=== PATIENT | female | born 1965 | race Caucasian/White ===

== ENCOUNTER 2023-11-02 07:19 | Emergency (ER) | payer OTHER, SELFPAY ==
[2023-11-02] VITALS (7 sets, daily range): BP systolic 133–177; BP diastolic 84–102; PULSE 84; O2SAT 97; BMI 33.6
--- NOTE | 2023-11-02 07:59 | ED.GENMED ---
History of Present Illness
General
Chief Complaint: Dizziness
Source: patient
Exam Limitations: none
Time Seen by Provider: 11/02/23 07:57
Nursing documentation reviewed up to this point in time: agreed with
Travel History
Have you had any contact with someone who has COVID-19?: No
Do you have any symptoms of coronavirus? Fever > 100 degrees, chills, cough, shortness of breath, sore throat, loss of taste or smell, muscle aches, or headache?: No
History of Present Illness
History of Present Illness:
58-year-old female with history of HLD, presents stating she awakened at 5:30 AM went to the bathroom, went back and laid down and while she was turning in bed she put her head up to check the time and developed a sudden onset of room spinning
dizziness that lasted about 30 seconds and was accompanied by breaking out in a sweat. At 6:40 she felt nauseous and since then feels dizzy anytime she moves her head and she feels off balance when she walks.
She denies headache or change in vision. Any recent illness. She has flown to [place] and back several times in the past couple of months as she just bought a house in [place], her last flight back was 8 days ago.
Denies CP, SOB, abdominal pain. Denies UTI symptoms. Denies weakness, numbness or tingling in extremities. No difficulty ambulating but feels 'a little off balance.'
Had R lower root canal 4 weeks ago.
At this time has to lay with head elevated on pillow, looking straight ahead, any movement of head elicits room spinning dizziness.
Past History
Past History
ED Past Medical History: Hypercholesterolemia
ED Past Surgical History:
Social History
Tobacco: Non-smoker
Alcohol: Occasional
Personal:
Living: with family
Employment: Employed
Review of Systems
Review of Systems
Allergies reviewed?: Yes
All Other Systems: ROS reviewed and negative except as documented in HPI and ROS
Constitutional: Denies fever or fatigue
EENT: Denies sore throat
Respiratory: Denies trouble breathing
Cardiac: Denies chest pain, palpitations or syncope
ABD/GI: Reports nausea; Denies abdominal pain, vomiting or diarrhea
: Denies dysuria, frequency or difficulty voiding
Musculoskeletal: Reports no symptoms
Skin: Reports no symptoms
Neurological: Reports dizzy; Denies headache, weakness or numbness
Phy Exam
Physical Exam
Physical Exam:
GENERAL: No acute distress. A&Ox3.
CONSTITUTIONAL: Afebrile.
EYES: PERRL, conjunctivae normal
Neck: Supple
ENMT: moist mucus membranes, Pharynx nl, TMs normal
RESPIRATORY: Regular respirations, nonlabored, lungs clear.
CARDIOVASCULAR: Regular rate and rhythm, no murmurs, no rubs.
GI: Soft, nontender, normal BS
MUSCULOSKELETAL: Moves with ease. Well perfused.
SKIN: Warm, dry, pink
PSYCH: Normal mood and affect. Well kept, interactive and appropriate
NEUROLOGIC: Awake, alert and oriented. No focal neurological deficits, CN intact, motor 5/5, sens intact, F to N wnl, nl patellar reflexes, nl gait
Course
Orders/Labs/Results
Orders:
Orders
11/02/23 07:29
Electrocardiogram (*1) Urgent
Reason for Study: Vertigo / Dizzy
EKG- Treatment ONCE
11/02/23 07:55
Complete Blood Count/With Diff Urgent
Comprehensive Metabolic Panel Urgent
11/02/23 07:57
Physical Therapy Consult [Pt Eval And Treat] Urgent
Treatment: Vestibular evaluation
Activity Level: As Tolerated
11/02/23 07:58
0.9% Sodium Chloride 1000 ml [Nss] 1,000 ml IV BOLUS
11/02/23 09:31
Meclizine [Antivert] 25 mg PO NOW STA
Abnormal Lab Results
11/02/23
07:55
Glucose 135 H mg/dl
(70-99)
11/02/23 07:55
11/02/23 07:55
Vital Signs
Initial and Last Documented VS:
Initial Vital Signs
Temp Pulse Resp BP Pulse Ox
98.7 F 99 18 177/102 100
11/02/23 07:21 11/02/23 07:21 11/02/23 07:21 11/02/23 07:21 11/02/23 07:21
Last Documented Vital Signs
Temp Pulse Resp BP Pulse Ox
98.7 F 84 16 133/84 96
11/02/23 07:21 11/02/23 11:16 11/02/23 11:16 11/02/23 11:16 11/02/23 11:16
MDM/Problems Addressed
Differential Diagnosis Includes:
Benign vertigo, labyrinthitis, vestibular neuritis, TIA
MDM/Problems Addressed:
58-year-old female with history of HLD, presents stating she awakened at 5:30 AM went to the bathroom, went back and laid down and while she was turning in bed she put her head up to check the time and developed a sudden onset of room spinning
dizziness that lasted about 30 seconds and was accompanied by breaking out in a sweat. At 6:40 she felt nauseous and since then feels dizzy anytime she moves her head and she feels off balance when she walks.
She denies headache or change in vision. Any recent illness. She has flown to [place] and back several times in the past couple of months as she just bought a house in [place], her last flight back was 8 days ago.
Denies CP, SOB, abdominal pain. Denies UTI symptoms. Denies weakness, numbness or tingling in extremities. No difficulty ambulating but feels 'a little off balance.'
Had R lower root canal 4 weeks ago.
At this time has to lay with head elevated on pillow, looking straight ahead, any movement of head elicits room spinning dizziness. Will hold
No focal neurological deficits
9:36 AM
Physical therapy and an evaluation reveals positive BPPV with right nystagmus.
Prescription for meclizine sent to her pharmacy
Pt ambulated out with normal gait at discharge
*Critical Care Note
Total Time (30-74mins, 75-104mins- exclusive of procedures): Not Applicable
ED Attending Note
-
Portions of this chart may have been created with voice recognition software.� Occasional wrong word or��sound alike� substitutions may have occurred due to the inherent limitations of voice recognition software.
Discharge Plan
Departure
Patient Disposition: Home (Routine Discharge)
Date of Disposition: 11/02/23
Time of Disposition: 09:58
Patient with high blood pressure during this ER visit?: Yes
Condition: Good
Discharge Problem:
Benign paroxysmal positional vertigo of right ear
Instructions: Vertigo (a Type of Dizziness) (DC), BLOOD PRESSURE
Prescriptions:
New
meclizine 25 mg tablet
25 mg PO TID PRN (Reason: dizziness) Qty: 30 0RF
Referrals:
Vestibular, Clinic [Other] - Next open appointment
Sam Chacon, DO [Family Provider] - As needed
Stand Alone Forms: Return to Work
Activity Restrictions/Additional Instructions:
As we discussed, call the vestibular clinic and make next available appointment. I sent a prescription for meclizine (Antivert) to your pharmacy.
Your blood pressure was a little high, 144/91, nothing worrisome, just have it checked under calm circumstances sometime within the next few days.
Interventions
Interventions:
*Risk Screen - Suicide Last Done: 11/02/23 07:22
*General Assessment Last Done: 11/02/23 07:22
*Neglect/Abuse Screening Last Done: 11/02/23 07:22
*ED COVID-19 Vaccine History Last Done: 11/02/23 07:22
*Nursing Disposition Last Done: 11/02/23 11:16
ED- Neurological Assessment Last Done: 11/02/23 07:44
ED- Cardiac Assessment Last Done: 11/02/23 11:18
ED Swallowing Screen Last Done: 11/02/23 09:52
Discharge Date and Time
Discharge Date/Time: 11/02/23 11:19
Print Language: [id number]
[2023-11-02 08:06] LABS: % Basophils 0.5 % (0-2); % Eosinophils 1.9 % (0-6); % Immature Granulocytes 0.2 % (0-0.5); % Lymphocytes 30.2 % (20.5-51.1); % Monocytes 7.8 % (1.7-9.3); % Neutrophils 59.4 % (42.2-75.2); Absolute Eosinophils 0.1 10^3/uL (0-0.7); Absolute Lymphocytes 1.7 10^3/uL (1.2-3.4); Absolute Monocytes 0.4 10^3/uL (0.1-0.6); Absolute Neutrophils 3.4 10^3/uL (1.4-6.5); Hematocrit 38.7 % (37.0-47.0); Hemoglobin 13.2 g/dL (12.0-16.0); Mean Corp Hgb Conc. 34.1 g/dL (33.0-37.0); Mean Corpuscular Hgb 30.2 pg (27.0-31.0); Mean Corpuscular Volume 88.6 fL (81.0-99.0); Mean Platelet Volume 9.8 fL (7.4-10.4); Nucleated Red Blood Cells % 0 %; Platelet Count 196 10^3/uL (130-400); Red Blood Cell Count 4.37 10^6/uL (4.20-5.40); Red Cell Dist. Width 12.6 % (11.5-14.5); White Blood Cell Count 5.7 10^3/uL (4.8-10.8)
[2023-11-02] MEDS: NSS 1000 IV (08:23)
[2023-11-02 08:32] LABS: ALT (SGPT) 33 U/L (0-35); AST (SGOT) 23 U/L (14-36); Albumin 4.5 g/dl (3.5-5.0); Alkaline Phosphatase 63 U/L (38-126); Blood Urea Nitrogen 17 mg/dl (7-17); Calcium 9.5 mg/dl (8.4-10.2); Carbon Dioxide 27 mmol/L (22-30); Chloride 103 mmol/L (98-107); Estimated Creatinine Clearance 109 ml/min; Glucose 135 mg/dl (70-99); Potassium 3.9 mmol/L (3.5-5.1); Sodium 137 mmol/L (135-145); Total Bilirubin 0.6 mg/dl (0.2-1.3); Total Protein 7.2 g/dl (6.3-8.2); eGFR > 60.00
[2023-11-02] MEDS: ANTIVERT 25 MG PO (09:39)
== END 2023-11-02 11:19 | disposition home or self-care (01) ==
LOC: EMR 07:19
PROVIDERS: Registered Nurse; EMERGENCY PHYSICIAN Emergency Medicine; FAMILY PHYSICIAN Family Medicine
DX: H81.11 Benign paroxysmal vertigo, right ear (principal); R03.0 Elevated blood-pressure reading, without diagnosis of hypertension; E78.00 Pure hypercholesterolemia, unspecified
CPT/HCPCS: 99284; 80053; 85025; 93005

== ENCOUNTER → 2024-01-06 13:13 | Outpatient (REF) | payer OTHER, SELFPAY | LOC: PAVMRI 13:13 | PROVIDERS: ATTENDING PHYSICIAN Family Medicine | DX: R42 Dizziness and giddiness (principal) | CPT/HCPCS: 70553; A9575 ==

== ENCOUNTER → 2024-02-29 17:05 | Outpatient (REF) | payer OTHER, SELFPAY | LOC: RAD 17:05 | PROVIDERS: ATTENDING PHYSICIAN Otolaryngology; FAMILY PHYSICIAN Family Medicine | DX: E04.0 Nontoxic diffuse goiter (principal) | CPT/HCPCS: 76536 ==

== ENCOUNTER → 2024-10-09 09:41 | Outpatient (REF) | payer OTHER, SELFPAY | LOC: RAD 09:41 | PROVIDERS: ATTENDING PHYSICIAN Family Medicine | DX: R47.02 Dysphasia (principal); R00.2 Palpitations; M25.511 Pain in right shoulder | CPT/HCPCS: 71046; 73030; 74221 ==

== ENCOUNTER → 2024-10-27 13:18 | Outpatient (REF) | payer OTHER, SELFPAY | LOC: HWRAD 13:18 | PROVIDERS: ATTENDING PHYSICIAN Family Medicine | DX: Z78.0 Asymptomatic menopausal state (principal) | CPT/HCPCS: 77080 ==

== ENCOUNTER → 2024-10-30 08:09 | Outpatient (REF) | payer OTHER, SELFPAY | LOC: HWRAD 08:09 | PROVIDERS: ATTENDING PHYSICIAN Obstetrics & Gynecology; FAMILY PHYSICIAN Family Medicine | DX: R10.2 Pelvic and perineal pain (principal) | CPT/HCPCS: 76830; 76856 ==

== ENCOUNTER → 2024-11-28 10:22 | Outpatient (REF) | payer OTHER, SELFPAY | LOC: WDC 10:22 | PROVIDERS: ATTENDING PHYSICIAN Nurse Practitioner Adult Health; FAMILY PHYSICIAN Family Medicine | DX: R92.8 Other abnormal and inconclusive findings on diagnostic imaging of breast (principal) | CPT/HCPCS: 76642 ==